=== PATIENT | female | born 1955 | race Caucasian/White ===

== ENCOUNTER 2020-04-12 05:22 | Emergency (ER) | payer OTHER, SELFPAY ==
[2020-04-12] VITALS (9 sets, daily range): BP systolic 122–157; BP diastolic 51–99; PULSE 44–58; RESP 14–20; TEMP 35.8; O2SAT 95–100; BMI 30.5
--- NOTE | 2020-04-12 05:35 | ED.VIS.GEN ---
History of Present Illness Chief Complaint: Lower Extremity Injury Informant: Patient Narrative: Patient is a 64-year-old female who presents to the emergency department for left ankle injury. She states that she fell going down 2 steps, twisting her ankle. She does not recall exactly what happened. This occurred just prior to arrival in the emergency department. She has not been able to ambulate since. She is not sure if she struck her head. She denies pain elsewhere besides her left ankle. She currently rates her pain as a 7 out of 10. There is an obvious deformity to it she denies any loss of sensation to the foot. She is able to move her toes. She is not able to move the ankle. No pain in the knee or hips bilaterally. She denies any headache or neck pain. No back pain. No pain to her upper extremities. No chest pain, shortness of breath. No abdominal pain or nausea/vomiting. She is on Eliquis with a history of atrial fibrillation as well as CAD with stents placed. She is a prediabetic. Past Medical History - Allergies and Home Meds Allergies/Adverse Reactions: Allergies No Known Allergies Allergy (Verified 04/12/20 05:27) Primary Care Physician: Denzel Clemens DPM [STAFF PHYSICIAN] - 2 Days [facility] [place] Doctor,Out of [NON-STAFF] - Past Medical History: - - Hypertension, pre-diabetes, hypothyroidism, atrial fibrillation status post ablation Smoking Status: Current every day smoker Review of Systems All systems negative except as indicated General: Denies: Chills, Fever Eyes: Denies: Visual changes - bilaterally Cardiovascular: Denies: Chest pain Respiratory: Denies: Dyspnea, Cough Gastrointestinal: Denies: Abdominal pain, Nausea, Vomiting Musculoskeletal: Reports: Extremity Pain. Denies: Neck pain, Back pain Skin: Denies: Rash, Wounds Neurological: Denies: Headache, Weakness, Parasthesia, Numbness Psych: Denies: Depression, Anxiety Hematologic: Denies: Easy bruising, Easy bleeding Physical Exam Vital Signs/Narrative: Vital Signs Temp Pulse Resp BP Pulse Ox 04/12/20 05:24 96.5 F L 55 L 16 157/79 H 95 Inital Vital Signs reviewed: Yes General: Well nourished, Well developed, No Acute Distress Head: Normocephalic, Atraumatic Eyes: Perrl, EOMI ENT: Moist mucous membranes Neck: Supple, Nontender Cardiovascular: Regular rate, Regular rhythm, No murmurs Respiratory: No distress, CTA bilaterally, Chest nontender Abdomen: Soft, Nontender, Nondistended Back: Negative for: Spinal tenderness Extremities: - - Obvious deformity to left ankle. There is 2+ DP pulse present, Strong doppler of PT pulse. Sensation intact. Able to move all toes. No pain with palpation of knees and anterior compression of hips. Skin: Normal color, No rash Neurological: Alert, Oriented x3, Normal Strength, Normal Sensation Psychological: Normal affect, Normal Mood Diagnostic/Tx/Re-eval - Medical Decision Making Patient presents to the emerge department for deformity of the left ankle after a fall. She is currently denying any other injury. No external signs of trauma elsewhere. Will obtain x-ray of the ankle. Patient treated with fentanyl for her pain. She is neurovascularly intact. I called and spoke with on-call orthopedic surgeon Dr. Fraire who recommended reduction and splinting in the emergency department and have her follow-up with Dr. Clemens outpatient. Conscious sedation was performed using propofol. Timeout performed prior to start of procedure. Given a bolus dose of 30 mg propofol to start. Reduction was performed and splint was applied using Ortho-Glass. Patient started to wake up mid procedure so she was given another 10 mg. Otherwise patient tolerated the procedure well. He is neurovascular intact post reduction. Postreduction films are obtained. Patient is to be nonweightbearing. I discussed that she feels comfortable going home. She states that she does want to go home. Will trial crutches here in the emergency department. He states that she lives on a one-story home. The is with her and he states that he will help her get around. I did write her prescription for [place]. She understands that this can make her drowsy and at an increased risk of falling so she is to be very cautious when taking it. Warning signs and symptoms for which to return to the emergency department including signs/symptoms of compartment syndrome are reviewed. She understands and is agreeable this plan. Will monitor in the ED post sedation. Patient signed out to oncoming attending due to end of shift. Plan is to discharge patient home. Procedures - Lower Extremity Splints Lower Extremity Splint: Orthoglass, Stirrup, - - Posterior splint Splint Fabrication: Fabricated Location: Left - Neurovascularly intact post splinting. ED Disposition - Plan for ED Patient: Disposition: Home or Assisted Living Diagnosis: Ankle dislocation, Fracture of distal fibula, Fractured medial malleolus Instructions: ED Dislocated Ankle, ED Ankle Fracture, ED Procedural Sedation, (Adult) Prescriptions: Hydrocodone/Acetaminophen [[place] 5-325 Tablet] 1 ea PO Q8 PRN 4 Days #12 tab PRN Reason: Pain Score 6-10/10 Prescription Printed Referrals: [facility] [place] Doctor,Out of [NON-STAFF] - Denzel Clemens DPM [STAFF PHYSICIAN] - 2 Days
[2020-04-12] MEDS: fentaNYL 100 MCG/2 ML Ampul 50 MCG IV (05:38)
--- NOTE | 2020-04-12 05:50 | RAD_ITS ---
STUDY: X-RAY - LEFT ANKLE REASON FOR EXAM: Female, 64 years old. lower leg injury. TECHNIQUE: 3 view(s) of the ankle. COMPARISON: None. FINDINGS: There is oblique fracture of the distal fibular diaphysis with also fracture involving the medial malleolus. There is dislocation of the ankle joint with anterior and medial displacement of the tibia relative to the talus. The soft tissue structures are unremarkable. RAD/Ankle min 3 Views IMPRESSION: Distal fibular diaphysis fracture and medial malleoli fracture with dislocation of the ankle joint as described. Questionable small avulsion fracture versus ossicle along the superior aspect of the navicular. Electronically Signed: David Swartz, at 6:54 EDT Tel , Service support ,
[2020-04-12] MEDS: Ondansetron 4 MG/2 ML Vial IV (06:14)
--- NOTE | 2020-04-12 07:06 | RAD_ITS ---
STUDY: X-RAY - LEFT ANKLE REASON FOR EXAM: Left ankle fracture post reduction. TECHNIQUE: 2 view(s) of the ankle. COMPARISON: Radiographs obtained earlier the same day. FINDINGS: There is a fracture of the distal fibular diaphysis with improved alignment and position. There is a fracture of the medial malleolus with less retraction. There is reduction of the tibiotalar subluxation. There is a posterior calcaneal enthesophyte. The visualized subtalar, talonavicular, calcaneocuboid and tarsal articulations are normal. There is an overlying cast. RAD/Ankle 2 Views IMPRESSION: Improvement of alignment and position of distal fibular and medial malleolar fractures, and reduction of tibiotalar subluxation. Electronically Signed: Ashish Christian MD at 7:38 EDT Tel , Service support ,
[2020-04-12] MEDS: Propofol 200 MG/20 ML Vial 40 MG IV BOLUS (07:14)
== END 2020-04-12 09:30 | disposition home or self-care (01) ==
PROVIDERS: Emergency Provider Emergency Medicine
DX: S82.832A Other fracture of upper and lower end of left fibula, initial encounter for closed fracture (principal); S82.52XA Displaced fracture of medial malleolus of left tibia, initial encounter for closed fracture; W10.9XXA Fall (on) (from) unspecified stairs and steps, initial encounter; Y93.9 Activity, unspecified; Y92.9 Unspecified place or not applicable; I48.91 Unspecified atrial fibrillation; I25.10 Atherosclerotic heart disease of native coronary artery without angina pectoris; R73.03 Prediabetes; Z95.5 Presence of coronary angioplasty implant and graft; Z79.01 Long term (current) use of anticoagulants; F17.200 Nicotine dependence, unspecified, uncomplicated
CPT/HCPCS: 29515; 73600; 73610; 96374; 96375; 99152; 99285; J7040; A4216; J2405